=== PATIENT | male | born 1995 | race Caucasian/White ===

== ENCOUNTER 2023-07-27 23:30 | Emergency (ER) | payer SELFPAY ==
[2023-07-28] MEDS: Sodium Chloride 0.9% 10 ML Syringe FLUSH PRN (00:13)
[2023-07-28] MEDS: Sodium Chloride 0.9% 2.5 ML Syringe FLUSH PRN (00:14)
[2023-07-28 00:28] LABS: BASOPHILS ABSOLUTE AUTO 0.02 K/uL (0.00-0.20); BASOPHILS PERCENT AUTO 0.2 % (0.0-1.0); EOSINOPHILS ABSOLUTE AUTO 0.11 K/uL (0.00-0.45); EOSINOPHILS PERCENT AUTO 1.3 % (0.0-6.0); HEMATOCRIT 39.8 % (42.0-52.0); HEMOGLOBIN 14.3 g/dL (14.0-18.0); IMMATURE GRAN ABSOLUTE AUTO 0.02 K/uL (0.00-0.05); IMMATURE GRAN PERCENT AUTO 0.2 % (0.0-0.4); LYMPHOCYTES ABSOLUTE AUTO 3.14 K/uL (1.00-4.80); LYMPHOCYTES PERCENT AUTO 36.3 % (24.0-44.0); MEAN CORPUSCULAR HEMOGLOBIN 32.1 pg (28.0-32.0); MEAN CORPUSCULAR HGB CONC 35.9 g/dL (32.0-36.0); MEAN CORPUSCULAR VOLUME 89.4 fL (83.0-99.0); MEAN PLATELET VOLUME 10.4 fL (9.4-12.4); MONOCYTES ABSOLUTE AUTO 0.65 K/uL (0.00-0.80); MONOCYTES PERCENT AUTO 7.5 % (0.0-8.0); NEUTROPHILS ABSOLUTE AUTO 4.71 K/uL (1.80-7.70); NEUTROPHILS PERCENT AUTO 54.5 % (41.0-71.0); PLATELET COUNT,PLT 210 K/uL (150-400); RED BLOOD CELL COUNT 4.45 M/uL (4.52-5.90); WHITE BLOOD CELL COUNT,WBC 8.65 K/uL (3.9-11.3)
[2023-07-28 00:40] LABS: INR 0.96 (0.86-1.11); PTT,PARTIAL THROMBOPLSTIN TIME 29.9 SEC (23.9-30.7)
[2023-07-28 00:54] LABS: ALANINE AMINOTRANSFERASE,ALT 49 IU/L (14-63); ALBUMIN 3.8 g/dL (3.4-5.0); ALKALINE PHOSPHATASE 114 U/L (46-116); ASPARTATE AMNIOTRANSFERASE,AST 16 IU/L (15-37); BILIRUBIN TOTAL 0.4 mg/dL (0.2-1.0); BLOOD UREA NITROGEN,BUN 10 mg/dL (7.0-18.0); CARBON DIOXIDE,CO2 24.9 mmol/L (21.0-32.0); CHLORIDE,CL 104 mmol/L (98-107); EST CRCL DRUG DOSING (CG) 108.01 mL/min; ESTIMATED GFR 104 mL/min (>60); GLUCOSE RANDOM 98 mg/dL (74-106); POTASSIUM,K 3.6 mmol/L (3.5-5.1); PROTEIN TOTAL,TP 7.5 g/dL (6.4-8.2); SODIUM,NA 143 mmol/L (136-148)
[2023-07-28] MEDS: Ketorolac 30 MG/ML SDV IVPUSH ONE (02:37)
== END 2023-07-28 03:01 | disposition home or self-care (01) ==
LOC: MW.ED 23:30
DX: H53.453 Other localized visual field defect, bilateral (principal); F98.5 Adult onset fluency disorder
CPT/HCPCS: 36415; 70450; 80053; 84484; 85025; 85610; 85730; 93005; 96374; 99285; J1885; J3490; 93010; 99284